=== PATIENT | female | born 1955 | race Caucasian/White ===

== ENCOUNTER 2019-07-06 06:31 | Day surgery (SDC) | payer MEDICARE, BC ==
[~2019-07-06 06:31] MED LIST: Acetaminophen 325 MG Tab PO ONE; Acetaminophen 325 MG Tab PO SCH; Bisacodyl 5 MG Tab PO PRN; Clindamycin Phosphate 900 MG in Sodium Chloride 0.9% 100 ML IV SCH; Cyclobenzaprine 10 MG Tab PO PRN; EPINEPHrine 1 MG/ML SDV ONE; Ketorolac 15 MG/ML SDV IVPUSH PRN; Lactated Ringers 1,000 ML IV SCH; Lidocaine 1%/Sod Bicarbonate in NS 8.4% 1 ML Syringe IDERM PRN; Magnesium Hydroxide 400 MG/5 ML Susp 30 ML Cup PO PRN; Midazolam 1 MG/ML 2 ML SDV ONE; Morphine 2 MG/ML Syringe IVPUSH PRN; Morphine 8 MG, EPINEPHrine 0.3 MG, Cefuroxime 750 MG, Ketorolac 30 MG, Sodium Chloride ... ONE; Naloxone 0.4 MG/ML SDV IVPUSH PRN; Ondansetron 4 MG/2 ML SDV IVPUSH PRN; Pregabalin 25 MG Cap PO SCH; Propofol 200 MG/20 ML SDV ONE; Ropivacaine 0.5% 5 MG/ML 30 ML SDV ONE; Sennosides 8.6 MG Tab PO PRN; Sodium Chloride 0.9% 10 ML Syringe FLUSH PRN; ceFAZolin 1 GM Vial ONE; fentaNYL 100 MCG/2 ML SDV ONE; oxyCODONE ER 10 MG TAB.ER PO SCH
--- NOTE | 2019-07-06 06:35 | PCM.PREANE ---
Preanesthetic Assessment - Procedure Proposed Procedure: left knee arthroplasty - Anesthesia/Transfusion/Family Hx Anesthesia History: Prior Anesthesia Without Reaction Family History of Anesthesia Reaction: No Transfusion History: No Prior Transfusion(s) - Review of Systems General: No Symptoms Pulmonary: No Symptoms Cardiovascular: No Symptoms Gastrointestinal: No Symptoms Neurological: No Symptoms (e) Other: Reports: Thyroid Problems - Physical Assessment NPO Status Date: 07/05/19 NPO Status Time: 22:30 Vital Signs: Last Vital Signs Temp 97.0 F 07/06/19 06:05 Pulse 73 07/06/19 06:05 Resp 16 07/06/19 06:05 BP 161/87 H 07/06/19 06:05 Pulse Ox 94 L 07/06/19 06:05 Height: 5 ft 3 in Weight: 93.44 kg ASA Class: 2 Mental Status: Alert & Oriented x3 Airway Class: Mallampati = 2 Dentition: Reports: Normal Dentition Thyro-Mental Finger Breadths: 3 Mouth Opening Finger Breadths: 3 ROM/Head Extension: Full Lungs: Clear to Auscultation, Normal Respiratory Effort Cardiovascular: Regular Rate, Regular Rhythm - Lab Values: Laboratory Last Values MRSA (PCR) Negative 06/20/19 11:14 - Allergies Allergies/Adverse Reactions: Allergies Allergy/AdvReac Type Severity Reaction Status Date / Time Penicillins Allergy Hives Verified 08/15/16 15:53 - Blood Blood Available: No - Acknowledgements Anesthesia Type Planned: Spinal Pt an Appropriate Candidate for the Planned Anesthesia: Yes Alternatives and Risks of Anesthesia Discussed w Pt/Guardian: Yes Pt/Guardian Understands and Agrees with Anesthesia Plan: Yes PreAnesthesia Questionnaire HEENT History: Reports: Cataract Cardiovascular History: Reports: High Cholesterol, Hypertension Respiratory History: Reports: None Gastrointestinal History: Reports: Colon Polyp, GERD, Hiatal Hernia Genitourinary History: Reports: None [employer] History: Reports: Other (See Below) Other OB/BYN History: breast lumpectomy Musculoskeletal History: Neurological History: Reports: None Psychiatric History: Reports: None Endocrine/Metabolic History: Reports: Hypothyroidism, Obesity/BMI 30+ Hematologic History: Reports: None Oncologic (Cancer) History: Reports: Breast Dermatologic History: Reports: None - Past Surgical History Head Surgeries/Procedures: Reports: None HEENT Surgical History: Reports: Cataract Surgery, Oral Surgery, Tonsillectomy Cardiovascular Surgical History: Reports: None Respiratory Surgical History: Reports: None GI Surgical History: Reports: Appendectomy, Colonoscopy, EGD Female Surgical History: Reports: Breast Biopsy, Hysterectomy Male Surgical History: Reports: None Endocrine Surgical History: Reports: None Neurological Surgical History: Reports: None Musculoskeletal Surgical History: Reports: Knee Replacement, Other (See Below) Other Musculoskeletal Surgeries/Procedures:: BILATERAL BUNIONECTOMY Oncologic Surgical History: Reports: Lumpectomy Dermatological Surgical History: Reports: None - SUBSTANCE USE Smoking Status *Q: Former Smoker (quit 13 years ago) Tobacco Use Within Last Twelve Months: No Second Hand Smoke Exposure: No Days Per Week of Alcohol Use: 2 Number of Drinks Per Day: 3 Total Drinks Per Week: 6 Recreational Drug Use History: No - HOME MEDS Home Medications: Home Meds Aspirin [Children's Aspirin] 81 mg PO DAILY 08/15/16 [History] Furosemide 40 mg PO DAILY 08/15/16 [History] Multivitamin [Daily Jovita] 1 tab PO DAILY 08/15/16 [History] Venlafaxine [Effexor XR] 37.5 mg PO DAILY 08/15/16 [History] amLODIPine [Norvasc] 5 mg PO DAILY 08/15/16 [History] Celecoxib 200 mg PO DAILY PRN 07/05/19 [History] Cholecalciferol (Vitamin D3) [Vitamin D3] 5,000 unit PO DAILY 07/05/19 [History] Levothyroxine [Levothroid] 137 mcg PO MOTUWETHFRSA 07/05/19 [History] Levothyroxine [Levothroid] 205.5 mcg PO OSBORN 07/05/19 [History] Rosuvastatin Calcium 20 mg PO DAILY 07/05/19 [History] - CURRENT (IN HOUSE) MEDS Current Meds: Current Medications Acetaminophen (Tylenol) 325 mg PO ONETIME [facility] Stop: 07/06/19 16:00 Last Admin: 07/06/19 06:25 Dose: 325 mg Lactated Ringer's (Ringers, Lactated) 1,000 mls @ 125 mls/hr IV ASDIRECTED [facility] Stop: 07/06/19 23:00 Clindamycin Phosphate 900 mg/ (Premix) 50 mls @ 50 mls/hr IV Q12H [facility] Lidocaine/Sodium Bicarbonate (Buffered Lidocaine 1% In Ns 8.4%) 0.25 ml IDERM ONETIME PRN PRN Reason: Prior to IV Start Stop: 07/06/19 18:00 Oxycodone HCl (Oxycontin) 10 mg PO ONETIME [facility] Stop: 07/06/19 16:00 Last Admin: 07/06/19 06:25 Dose: 10 mg Pregabalin (Lyrica) 50 mg PO ONETIME [facility] Stop: 07/06/19 16:00 Last Admin: 07/06/19 06:25 Dose: 50 mg Sodium Chloride (Saline Flush) 10 ml FLUSH ASDIRECTED PRN PRN Reason: Keep Vein Open Stop: 07/06/19 18:00 Discontinued Medications Bupivacaine HCl (Sensorcaine-Mpf 0.25%) Confirm Administered Dose 30 ml .ROUTE .STK-MED ONE Stop: 07/06/19 06:28 Cefazolin Sodium (Ancef) Confirm Administered Dose 2 gm .ROUTE .STK-MED ONE Stop: 07/06/19 06:27 Epinephrine HCl (Adrenalin) Confirm Administered Dose 1 mg .ROUTE .STK-MED ONE Stop: 07/06/19 06:19 Fentanyl (Sublimaze) Confirm Administered Dose 100 mcg .ROUTE .STK-MED ONE Stop: 07/06/19 06:14 Clindamycin Phosphate 900 mg/ (Sodium Chloride) 106 mls @ 200 mls/hr IV ONETIME [facility] Iodine (Iodine 2% Mild Tincture) Confirm Administered Dose 30 ml .ROUTE .STK- MED ONE Stop: 07/06/19 06:27 Midazolam HCl (Versed 1 Mg/Ml) Confirm Administered Dose 2 mg .ROUTE .STK-MED ONE Stop: 07/06/19 06:14 Propofol (Diprivan 20 Ml) Confirm Administered Dose 600 mg .ROUTE .STK-MED ONE Stop: 07/06/19 06:14 Ropivacaine (Naropin 0.5%) Confirm Administered Dose 30 ml .ROUTE .STK-MED ONE Stop: 07/06/19 06:19 Tranexamic Acid (Cyklokapron) Confirm Administered Dose 1,000 mg .ROUTE .STK- MED ONE Stop: 07/06/19 06:27 Vancomycin HCl (Vancomycin) Confirm Administered Dose 1 gm .ROUTE .STK-MED ONE Stop: 07/06/19 06:27
[2019-07-06] MEDS ORDERED: ceFAZolin 2 GM in Premix Bag 1 BAG IV SCH (07:00)
[2019-07-06] MEDS: Clindamycin Phosphate in D5W 900 MG in Premix Bag 1 BAG IV SCH ×4 (07:04→17:29)
[2019-07-06] MEDS ORDERED: fentaNYL 100 MCG/2 ML SDV IVPUSH PRN (07:20)
[2019-07-06] MEDS ORDERED: HYDROmorphone 0.5 MG/0.5 ML Syringe IVPUSH PRN (07:20)
[2019-07-06] MEDS ORDERED: Ondansetron 4 MG/2 ML SDV IVPUSH PRN (07:20)
[2019-07-06] MEDS ORDERED: ePHEDrine/Normal Saline 25 MG/5 ML Syringe ONE (07:27)
[2019-07-06] MEDS ORDERED: Ondansetron 4 MG/2 ML SDV ONE (07:49)
[2019-07-06] MEDS: Clindamycin Phosphate 900 MG/6 ML SDV ONE ×2 (07:50→08:19)
[2019-07-06] MEDS: Iodine/Sodium Iodide 2% Tincture 30 ML Bottle ONE ×2 (07:50→08:15)
[2019-07-06] MEDS: Vancomycin 1 GM SDV ONE ×2 (07:51→08:26)
[2019-07-06] MEDS: Morphine 8 MG, EPINEPHrine 0.3 MG, Ketorolac 30 MG, Sodium Chloride 0.9% 27.9 ML ONE ×12 (07:51→11:56)
[2019-07-06] MEDS: Bupivacaine 0.25% 10 ML SDV ONE ×2 (07:51→08:22)
[2019-07-06] MEDS ORDERED: Lactated Ringers 1,000 ML ONE (08:47)
[2019-07-06] MEDS ORDERED: Ketorolac 30 MG/ML SDV ONE (08:56)
--- NOTE | 2019-07-06 09:02 | PCM.POSTAN ---
POST ANESTHESIA ASSESSMENT - MENTAL STATUS Mental Status: Alert, Oriented - VITAL SIGNS Vital Signs: Last Vital Signs Temp 97.0 F 07/06/19 06:05 Pulse 73 07/06/19 06:05 Resp 16 07/06/19 06:05 BP 161/87 H 07/06/19 06:05 Pulse Ox 94 L 07/06/19 06:05 108/58 96% 74 16 98.1 - RESPIRATORY Respiratory Status: Respiratory Rate WNL, Airway Patent, O2 Saturation Stable, Supplemental Oxygen - CARDIOVASCULAR CV Status: Pulse Rate WNL, Blood Pressure Stable - GASTROINTESTINAL GI Status: No Symptoms - PAIN Pain Score: 0 - POST OP HYDRATION Hydration Status: Adequate & Stable
--- NOTE | 2019-07-06 09:29 | PCM.SN ---
- Free Text/Narrative Note: Left selective femoral nerve block at the adductor canal for post-procedure pain control under US guidance requested by Dr. Hemphill. Date:07/06/19 Time Out: 911 Start: 912 End: 918 Chart reviewed. Consent signed. Questions answered. Appropriate monitors applied. Time out performed. Left mid-shaft femur identified with ultrasound, scanning medially of femur, the femoral artery in the adductor canal visualized , and the femoral nerve located laterally to the artery. The skin was prepped lateral to the ultrasound probe with chlorahexadine times two. The 21ga 4 insulated block needle was inserted under direct ultrasound guidance into the adductor canal. 25mL of 0.5% ropivacaine with 1:200,000 epinephrine was injected circumferentially around the nerve with intermittent negative aspiration noted. Patient tolerated the procedure well. Sterile technique noted along with sterile gloves, mask, and sterile probe cover. See picture on progress note and vital signs on nurses notes. Block completed in PACU. Didier Rodriguez CRNA
--- NOTE | 2019-07-06 16:14 | CR ---
Left knee: AP and lateral views left knee were obtained. Comparison: No prior knee exam. Knee prosthesis is seen. Components are aligned. Soft tissue air is noted from the surgical procedure. Underlying bony structures are intact. Impression: 1. Satisfactory postop radiographic appearance of recently placed left knee prosthesis. Diagnostic code #2 This report was dictated in [place] Standard Time
[2019-07-06] MEDS: Acetaminophen/oxyCODONE 325-5 MG Tab PO PRN ×2 (16:34→22:51)
[2019-07-06] MEDS: Docusate Sodium 100 MG Cap PO SCH (22:51)
[2019-07-07] MEDS: Acetaminophen/oxyCODONE 325-5 MG Tab PO PRN (05:57)
[2019-07-07] MEDS: Clindamycin Phosphate in D5W 900 MG in Premix Bag 1 BAG IV SCH ×2 (05:57)
--- NOTE | 2019-07-07 07:49 | PCM48HPAN ---
Post Anesthesia Note - EVALUATION WITHIN 48HRS OF ANESTHETIC Vital Signs in Normal Range: Yes Patient Participated in Evaluation: Yes Respiratory Function Stable: Yes Airway Patent: Yes Cardiovascular Function Stable: Yes Hydration Status Stable: Yes Pain Control Satisfactory: Yes Nausea and Vomiting Control Satisfactory: Yes Mental Status Recovered: Yes Vital Signs: Last Vital Signs Temp 36.6 C 07/07/19 04:00 Pulse 74 07/07/19 04:00 Resp 14 07/07/19 04:00 BP 118/76 07/07/19 04:00 Pulse Ox 95 07/07/19 04:00
[2019-07-07] MEDS: Docusate Sodium 100 MG Cap PO SCH (08:47)
[2019-07-07 08:50] VITALS: BP 142/67; PULSE 78
[2019-07-07] MEDS ORDERED: Venlafaxine 37.5 MG Cap.ER PO SCH (09:00)
[2019-07-07] MEDS ORDERED: Aspirin 325 MG Tab.EC PO SCH (09:00)
[2019-07-07] MEDS ORDERED: amLODIPine 5 MG Tab PO SCH (09:00)
[2019-07-07] MEDS ORDERED: Multivitamins,Therapeutic Tab PO SCH (09:00)
[2019-07-07] MEDS ORDERED: Rosuvastatin 10 MG Tab PO SCH (09:00)
[2019-07-07] MEDS ORDERED: Cholecalciferol (Vitamin D3) 5,000 UNIT Tab PO SCH (09:00)
--- NOTE | 2019-07-07 15:09 | PCM.SURGPN ---
- General Info Date of Service: 07/07/19 POD#: 1 Functional Status: Reports: Pain Controlled, Tolerating Diet, Ambulating, Urinating, Incentive Spirometry, Other (The pt states she is doing well.) - Patient Data Vitals - Most Recent: Last Vital Signs Temp 98.2 F 07/07/19 08:38 Pulse 78 07/07/19 08:38 Resp 24 H 07/07/19 08:38 BP 142/67 H 07/07/19 08:46 Pulse Ox 94 L 07/07/19 08:38 Weight - Most Recent: 206 lb I&O - Last 24 Hours: Intake & Output 07/07/19 07/07/19 07/07/19 06:59 14:59 22:59 Intake Total 180 Balance 180 Lab Results Last 24 Hrs: Laboratory Results - last 24 hr 07/07/19 07/07/19 Range/Units 05:03 05:03 WBC 9.01 (3.98-10.04) K/mm3 RBC 4.03 (3.98-5.22) M/mm3 Hgb 11.3 (11.2-15.7) gm/dl Hct 35.9 (34.1-44.9) % MCV 89.1 (79.4-94.8) fl MCH 28.0 (25.6-32.2) pg MCHC 31.5 L (32.2-35.5) g/dl RDW Std Deviation 48.0 H (36.4-46.3) fL Plt Count 225 (182-369) K/mm3 MPV 10.7 (9.4-12.3) fl Sodium 136 (136-145) mEq/L Potassium 4.0 (3.5-5.1) mEq/L Chloride 100 (98-107) mEq/L Carbon Dioxide 29 (21-32) mEq/L Anion Gap 11.0 (5-15) BUN 18 (7-18) mg/dL Creatinine 0.8 (0.55-1.02) mg/dL Est Cr Clr Drug Dosing 57.99 mL/min Estimated GFR (MDRD) > 60 (>60) mL/min BUN/Creatinine Ratio 22.5 H (14-18) Glucose 114 (80-115) mg/dL Calcium 8.6 (8.5-10.1) mg/dL Total Bilirubin 0.5 (0.2-1.0) mg/dL AST 21 (15-37) U/L ALT 35 (14-59) U/L Alkaline Phosphatase 53 (46-116) U/L Total Protein 7.3 (6.4-8.2) g/dl Albumin 3.5 (3.4-5.0) g/dl Globulin 3.8 gm/dL Albumin/Globulin Ratio 0.9 L (1-2) Med Orders - Current: Current Medications Discontinued Medications Acetaminophen (Tylenol) 325 mg PO ONETIME [facility] Stop: 07/06/19 16:00 Last Admin: 07/06/19 06:25 Dose: 325 mg Acetaminophen (Tylenol) 650 mg PO ONETIME ONE Stop: 07/06/19 06:01 Amlodipine Besylate (Norvasc) 5 mg PO DAILY [facility] Last Admin: 07/07/19 08:46 Dose: 5 mg Aspirin (Ecotrin) 325 mg PO BID [facility] Last Admin: 07/07/19 08:47 Dose: 325 mg Bisacodyl (Dulcolax) 5 mg PO DAILY PRN PRN Reason: Constipation Bupivacaine HCl (Sensorcaine-Mpf 0.25%) Confirm Administered Dose 30 ml .ROUTE .STK-MED ONE Stop: 07/06/19 06:28 Last Admin: 07/06/19 08:22 Dose: 30 ml Cefazolin Sodium (Ancef) Confirm Administered Dose 2 gm .ROUTE .STK-MED ONE Stop: 07/06/19 06:27 Cholecalciferol (Vitamin D3) 5,000 unit PO DAILY [facility] Last Admin: 07/07/19 08:47 Dose: 5,000 unit Clindamycin Phosphate (Cleocin) Confirm Administered Dose 900 mg .ROUTE .STK- MED ONE Stop: 07/06/19 07:01 Last Admin: 07/06/19 08:19 Dose: 900 mg Morphine Sulfate 8 mg/Epinephrine HCl 0.3 mg/Ketorolac Tromethamine 30 mg/ Sodium Chloride 27.9 ml 0 mg .XX ONETIME ONE Stop: 07/06/19 07:31 Last Admin: 07/06/19 11:56 Dose: Not Given Cyclobenzaprine HCl (Flexeril) 10 mg PO TID PRN PRN Reason: Spasms Docusate Sodium (Colace) 100 mg PO BID [facility] Last Admin: 07/07/19 08:47 Dose: 100 mg Ephedrine Sulfate (Ephedrine In Ns) Confirm Administered Dose 25 mg .ROUTE .STK- MED ONE Stop: 07/06/19 07:28 Epinephrine HCl (Adrenalin) Confirm Administered Dose 1 mg .ROUTE .STK-MED ONE Stop: 07/06/19 06:19 Fentanyl (Sublimaze) Confirm Administered Dose 100 mcg .ROUTE .STK-MED ONE Stop: 07/06/19 06:14 Fentanyl (Sublimaze) 50 mcg IVPUSH Q5M PRN PRN Reason: Pain Stop: 07/06/19 18:00 Hydromorphone HCl (Dilaudid) 0.5 mg IVPUSH Q10M PRN PRN Reason: Pain (severe 7-10) Stop: 07/06/19 18:00 Lactated Ringer's (Ringers, Lactated) 1,000 mls @ 125 mls/hr IV ASDIRECTED [facility] Stop: 07/06/19 23:00 Last Admin: 07/06/19 06:35 Dose: 125 mls/hr Clindamycin Phosphate 900 mg/ (Sodium Chloride) 106 mls @ 200 mls/hr IV ONETIME [facility] Clindamycin Phosphate 900 mg/ (Premix) 50 mls @ 50 mls/hr IV Q12H [facility] Stop: 07/07/19 06:59 Last Admin: 07/07/19 05:57 Dose: 50 mls/hr Lactated Ringer's (Ringers, Lactated) Confirm Administered Dose 1,000 mls @ as directed .ROUTE .STK-MED ONE Stop: 07/06/19 08:48 Iodine (Iodine 2% Mild Tincture) Confirm Administered Dose 30 ml .ROUTE .STK- MED ONE Stop: 07/06/19 06:27 Last Admin: 07/06/19 08:15 Dose: 18 ml Ketorolac Tromethamine (Toradol) 15 mg IVPUSH Q6H PRN PRN Reason: Pain Stop: 07/11/19 06:31 Last Admin: 07/07/19 08:57 Dose: 15 mg Ketorolac Tromethamine (Toradol) Confirm Administered Dose 30 mg .ROUTE .STK- MED ONE Stop: 07/06/19 08:57 Levothyroxine Sodium (Levothroid) 137 mcg PO [id number] [facility] Last Admin: 12/12/19 06:03 Dose: 137 mcg Levothyroxine Sodium (Levothroid) 205.5 mcg PO [email or web address]@0700 [facility] Lidocaine/Sodium Bicarbonate (Buffered Lidocaine 1% In Ns 8.4%) 0.25 ml IDERM ONETIME PRN PRN Reason: Prior to IV Start Stop: 07/06/19 18:00 Last Admin: 07/06/19 06:35 Dose: 0.25 ml Magnesium Hydroxide (Milk Of Magnesia) 30 ml PO BID PRN PRN Reason: Constipation Midazolam HCl (Versed 1 Mg/Ml) Confirm Administered Dose 2 mg .ROUTE .STK-MED ONE Stop: 07/06/19 06:14 Morphine Sulfate (Morphine) 2 mg IVPUSH Q2H PRN PRN Reason: Breakthrough Pain Multivitamins (Thera) 1 each PO DAILY [facility] Last Admin: 07/07/19 08:46 Dose: 1 each Naloxone HCl (Narcan) 0.1 mg IVPUSH Q5M PRN PRN Reason: Oversedation Ondansetron HCl (Zofran) 4 mg IVPUSH Q6H PRN PRN Reason: Nausea/Vomiting Ondansetron HCl (Zofran) 4 mg IVPUSH ONETIME PRN PRN Reason: Nausea/Vomiting Stop: 07/06/19 18:00 Ondansetron HCl (Zofran) Confirm Administered Dose 4 mg .ROUTE .STK-MED ONE Stop: 07/06/19 07:50 Oxycodone HCl (Oxycontin) 10 mg PO ONETIME [facility] Stop: 07/06/19 16:00 Last Admin: 07/06/19 06:25 Dose: 10 mg Oxycodone/Acetaminophen (Percocet 325-5 Mg) 1 - 2 tab PO Q4H PRN PRN Reason: Pain Last Admin: 07/07/19 05:57 Dose: 2 tab Pregabalin (Lyrica) 50 mg PO ONETIME [facility] Stop: 07/06/19 16:00 Last Admin: 07/06/19 06:25 Dose: 50 mg Propofol (Diprivan 20 Ml) Confirm Administered Dose 600 mg .ROUTE .STK-MED ONE Stop: 07/06/19 06:14 Ropivacaine (Naropin 0.5%) Confirm Administered Dose 30 ml .ROUTE .STK-MED ONE Stop: 07/06/19 06:19 Rosuvastatin Calcium (Crestor) 20 mg PO DAILY [facility] Last Admin: 07/07/19 08:47 Dose: 20 mg Senna (Senna) 8.6 mg PO BID PRN PRN Reason: Constipation Sodium Chloride (Saline Flush) 10 ml FLUSH ASDIRECTED PRN PRN Reason: Keep Vein Open Stop: 07/06/19 18:00 Tranexamic Acid (Cyklokapron) Confirm Administered Dose 1,000 mg .ROUTE .STK- MED ONE Stop: 07/06/19 06:27 Last Admin: 07/06/19 08:30 Dose: 1,000 mg Vancomycin HCl (Vancomycin) Confirm Administered Dose 1 gm .ROUTE .STK-MED ONE Stop: 07/06/19 06:27 Last Admin: 07/06/19 08:26 Dose: 1 gm Venlafaxine HCl (Effexor Xr) 37.5 mg PO DAILY [facility] Last Admin: 07/07/19 08:46 Dose: 37.5 mg - Exam Wound/Incisions: Dressing Dry and Intact General: Alert, Cooperative, No Acute Distress Lungs: Normal Respiratory Effort Extremities: Other (NVS intact for BLE. Manny's negative for BLE.) Sepsis Event Note - Evaluation Sepsis Screening Result: No Definite Risk - Focused Exam Vital Signs: Vital Signs Temp Temp Pulse Pulse Resp BP BP 07/07/19 08:46 142/67 H 07/07/19 08:38 98.2 F 78 24 H 142/67 H 07/07/19 04:00 97.9 F 74 14 118/76 Pulse Ox 07/07/19 08:46 07/07/19 08:38 94 L 07/07/19 04:00 95 Date Exam was Performed: 07/07/19 Time Exam was Performed: 15:07 - Problem List Review Problem List Initiated/Reviewed/Updated: Yes - My Orders Last 24 Hours: Active Orders 24 hr Category Date Time Status Ready for Discharge [RC] PER UNIT ROUTINE Care 07/07/19 07:02 Active - Assessment Assessment (Free Text/Narrative):: POD#1 - left TKA - Plan Plan (Free Text/Narrative):: 1. Hgb 11.3. 2. 325mg ASA PO BID, frequent mobility, TEDs. 3. Discharge to home today. The pt states she has a friend staying with her. 4. Outpatient therapy. The pt's case was discussed with Dr. Hemphill.
--- NOTE | 2019-07-07 15:10 | PCM.DCSUM1 ---
Discharge Summary - Hospital Course Brief History: Rachelle is a 63 yo female who underwent left TKA with Dr. Hemphill on 07-06-2019. The procedure was completed under spinal anesthesia with sedation and a post-operative adductor canal block was provided. The pt tolerated the procedure well and was admitted to the Medical-Surgical Unit. The pt's Hospital course was uneventful. The pt's Hgb on POD#1 was 11.3. On POD#1, 325mg ASA BID was initiated for VTE prophylaxis. SCDs and TEDs were also ordered. A Mepilex dressing was placed at the incision site at the time of surgery and remained clean and dry. The pt participated in P.T. and O.T. and progressed well. The pt was allowed to WBAT. On POD#1, the pt was deemed appropriate to discharge to home with her friend. - Discharge Data Discharge Date: 07/07/19 Discharge Disposition: Home, Self-Care 01 Condition: Good - Referral to Home Health Primary Care Physician: Sumeet Pino PT - Patient Summary/Data Consults: Consultations 07/06/19 06:30 OT Evaluation and Treatment [CONS] Routine PT Evaluation and Treatment [CONS] Routine - Patient Instructions Diet: Usual Diet as Tolerated Activity: Apply Ice, As Tolerated, Elevate Extremity, Full Weight Bearing Driving: Do Not Drive Showering/Bathing: May Shower Wound/Incision Care: Keep Operative Site/Wound Site Clean and Dry, Do NOT Change Dressing Notify Provider of: Fever, Increased Pain, Swelling and Redness, Drainage, Nausea and/or Vomiting Other/Special Instructions: Please get up and moving around EVERY HOUR while awake. This helps to prevent blood clots. Please use your walker and have help with mobility as needed. Take a short walk in your home every hour while awake. Please take 325mg Aspirin TWICE daily. The aspirin is being used for blood clot prevention and not for pain management so please do not miss a dose of the medication. You could use a medication like Pepcid or Tagamet and a medication like Prilosec or Nexium to protect your stomach while you are using the aspirin. At home, please complete the exercises that you learned during the Hospital stay. Schedule for physical therapy. Use the pain medication as needed. The medication may cause drowsiness and constipation. Contact your primary care provider for instructions if you are constipated. You may use a stool softener like docusate sodium or Colace 100mg twice daily and/or a laxative like Miralax daily for constipation. Increase your water and fiber intake while you are using the pain medication. Discontinue use of the pain medication as soon as able. Please do not use other medications that may cause drowsiness (other pain medications, anxiety pills, cold medications, sleeping pills, etc) while using the prescription pain medication. Do not use alcohol while using the pain medication. You may use acetaminophen or Tylenol for pain management, however, please ensure you are not using over 4000 mg or 4 grams of acetaminophen per day from all sources. Your pain medication has 325mg of acetaminophen per tablet. At this time, please do not use ibuprofen (Motrin, Advil) or naproxen (Aleve) for pain management as you are using the aspirin. When the aspirin course is completed in 4 to 6 weeks, you could use ibuprofen or naproxen for pain management (if this is allowed by your primary care provider). Wear the HAM hose during the day and you may remove these at night. Elevate the limb to decrease swelling. Place ice to the area often. Place a towel between your skin and the blue pad. Use the incentive spirometer often. Take deep breaths throughout the day. Please keep the dressing in place until follow-up. Notify the Clinic if the dressing becomes saturated. Increase your protein intake while you are healing. If you have diabetes, please closely monitor your blood sugars and notify your primary care provider with abnormal values. Elevated blood sugars increases the risk of infection. Call the Clinic with questions or concerns - [phone]. - Discharge Plan *PRESCRIPTION DRUG MONITORING PROGRAM REVIEWED*: No *COPY OF PRESCRIPTION DRUG MONITORING REPORT IN PATIENT ALETA: No Prescriptions/Med Rec: Acetaminophen/oxyCODONE [Percocet 325-5 MG] 1 - 2 tab PO Q4H PRN #60 tablet PRN Reason: Pain Aspirin [Ecotrin EC] 325 mg PO BID #84 tab.ec Cyclobenzaprine [Flexeril] 5 mg PO BID PRN #20 tablet PRN Reason: Spasms Home Medications: Home Meds Furosemide 40 mg PO DAILY 08/15/16 [History] Multivitamin [Daily Jovita] 1 tab PO DAILY 08/15/16 [History] Venlafaxine [Effexor XR] 37.5 mg PO DAILY 08/15/16 [History] amLODIPine [Norvasc] 5 mg PO DAILY 08/15/16 [History] Cholecalciferol (Vitamin D3) [Vitamin D3] 5,000 unit PO DAILY 07/05/19 [History] Levothyroxine [Levothroid] 137 mcg PO MOTUWETHFRSA 07/05/19 [History] Levothyroxine [Levothroid] 205.5 mcg PO OSBORN 07/05/19 [History] Rosuvastatin Calcium 20 mg PO DAILY 07/05/19 [History] Acetaminophen/oxyCODONE [Percocet 325-5 MG] 1 - 2 tab PO Q4H PRN #60 tablet 07/14 [Rx] Aspirin [Ecotrin EC] 325 mg PO BID #84 tab.ec 07/07/19 [Rx] Bisacodyl [Dulcolax] 5 mg PO DAILY PRN #0 tablet 07/07/19 [Rx] Cyclobenzaprine [Flexeril] 5 mg PO BID PRN #20 tablet 07/07/19 [Rx] Docusate Sodium [Colace] 100 mg PO BID cap 07/07/19 [Rx] Sennosides [Senna] 8.6 mg PO BID PRN tablet 07/07/19 [Rx] Referrals: Rossi Nagy, PAAlidaC [Physician Manager [employer]] - (Please follow up with Rossi Nagy on: 1) ThursdayJuly 13 at 12:30 pm. 2) ThursdayJuly 18 at 9:45 am. 3) Thursday 12:00 pm) Leeanna Weems MD [Physician] - 07/21/19 3:00 pm (Please follow up with Dr. Farah on July 21 at 3:00pm) - Discharge Summary/Plan Comment DC Time >30 min.: No - Patient Data Vitals - Most Recent: Last Vital Signs Temp 98.2 F 07/07/19 08:38 Pulse 78 07/07/19 08:38 Resp 24 H 07/07/19 08:38 BP 142/67 H 07/07/19 08:46 Pulse Ox 94 L 07/07/19 08:38 Weight - Most Recent: 206 lb I&O - Last 24 hours: Intake & Output 07/07/19 07/07/19 07/07/19 06:59 14:59 22:59 Intake Total 180 Balance 180 Lab Results - Last 24 hrs: Laboratory Results - last 24 hr 07/07/19 07/07/19 Range/Units 05:03 05:03 WBC 9.01 (3.98-10.04) K/mm3 RBC 4.03 (3.98-5.22) M/mm3 Hgb 11.3 (11.2-15.7) gm/dl Hct 35.9 (34.1-44.9) % MCV 89.1 (79.4-94.8) fl MCH 28.0 (25.6-32.2) pg MCHC 31.5 L (32.2-35.5) g/dl RDW Std Deviation 48.0 H (36.4-46.3) fL Plt Count 225 (182-369) K/mm3 MPV 10.7 (9.4-12.3) fl Sodium 136 (136-145) mEq/L Potassium 4.0 (3.5-5.1) mEq/L Chloride 100 (98-107) mEq/L Carbon Dioxide 29 (21-32) mEq/L Anion Gap 11.0 (5-15) BUN 18 (7-18) mg/dL Creatinine 0.8 (0.55-1.02) mg/dL Est Cr Clr Drug Dosing 57.99 mL/min Estimated GFR (MDRD) > 60 (>60) mL/min BUN/Creatinine Ratio 22.5 H (14-18) Glucose 114 (80-115) mg/dL Calcium 8.6 (8.5-10.1) mg/dL Total Bilirubin 0.5 (0.2-1.0) mg/dL AST 21 (15-37) U/L ALT 35 (14-59) U/L Alkaline Phosphatase 53 (46-116) U/L Total Protein 7.3 (6.4-8.2) g/dl Albumin 3.5 (3.4-5.0) g/dl Globulin 3.8 gm/dL Albumin/Globulin Ratio 0.9 L (1-2) Med Orders - Current: Current Medications Discontinued Medications Acetaminophen (Tylenol) 325 mg PO ONETIME KYLIE Stop: 07/06/19 16:00 Last Admin: 07/06/19 06:25 Dose: 325 mg Acetaminophen (Tylenol) 650 mg PO ONETIME ONE Stop: 07/06/19 06:01 Amlodipine Besylate (Norvasc) 5 mg PO DAILY [facility] Last Admin: 07/07/19 08:46 Dose: 5 mg Aspirin (Ecotrin) 325 mg PO BID [facility] Last Admin: 07/07/19 08:47 Dose: 325 mg Bisacodyl (Dulcolax) 5 mg PO DAILY PRN PRN Reason: Constipation Bupivacaine HCl (Sensorcaine-Mpf 0.25%) Confirm Administered Dose 30 ml .ROUTE .STK-MED ONE Stop: 07/06/19 06:28 Last Admin: 07/06/19 08:22 Dose: 30 ml Cefazolin Sodium (Ancef) Confirm Administered Dose 2 gm .ROUTE .STK-MED ONE Stop: 07/06/19 06:27 Cholecalciferol (Vitamin D3) 5,000 unit PO DAILY [facility] Last Admin: 07/07/19 08:47 Dose: 5,000 unit Clindamycin Phosphate (Cleocin) Confirm Administered Dose 900 mg .ROUTE .STK- MED ONE Stop: 07/06/19 07:01 Last Admin: 07/06/19 08:19 Dose: 900 mg Morphine Sulfate 8 mg/Epinephrine HCl 0.3 mg/Ketorolac Tromethamine 30 mg/ Sodium Chloride 27.9 ml 0 mg .XX ONETIME ONE Stop: 07/06/19 07:31 Last Admin: 07/06/19 11:56 Dose: Not Given Cyclobenzaprine HCl (Flexeril) 10 mg PO TID PRN PRN Reason: Spasms Docusate Sodium (Colace) 100 mg PO BID [facility] Last Admin: 07/07/19 08:47 Dose: 100 mg Ephedrine Sulfate (Ephedrine In Ns) Confirm Administered Dose 25 mg .ROUTE .STK- MED ONE Stop: 07/06/19 07:28 Epinephrine HCl (Adrenalin) Confirm Administered Dose 1 mg .ROUTE .STK-MED ONE Stop: 07/06/19 06:19 Fentanyl (Sublimaze) Confirm Administered Dose 100 mcg .ROUTE .STK-MED ONE Stop: 07/06/19 06:14 Fentanyl (Sublimaze) 50 mcg IVPUSH Q5M PRN PRN Reason: Pain Stop: 07/06/19 18:00 Hydromorphone HCl (Dilaudid) 0.5 mg IVPUSH Q10M PRN PRN Reason: Pain (severe 7-10) Stop: 07/06/19 18:00 Lactated Ringer's (Ringers, Lactated) 1,000 mls @ 125 mls/hr IV ASDIRECTED [facility] Stop: 07/06/19 23:00 Last Admin: 07/06/19 06:35 Dose: 125 mls/hr Clindamycin Phosphate 900 mg/ (Sodium Chloride) 106 mls @ 200 mls/hr IV ONETIME [facility] Clindamycin Phosphate 900 mg/ (Premix) 50 mls @ 50 mls/hr IV Q12H [facility] Stop: 07/07/19 06:59 Last Admin: 07/07/19 05:57 Dose: 50 mls/hr Lactated Ringer's (Ringers, Lactated) Confirm Administered Dose 1,000 mls @ as directed .ROUTE .STK-MED ONE Stop: 07/06/19 08:48 Iodine (Iodine 2% Mild Tincture) Confirm Administered Dose 30 ml .ROUTE .STK- MED ONE Stop: 07/06/19 06:27 Last Admin: 07/06/19 08:15 Dose: 18 ml Ketorolac Tromethamine (Toradol) 15 mg IVPUSH Q6H PRN PRN Reason: Pain Stop: 07/11/19 06:31 Last Admin: 07/07/19 08:57 Dose: 15 mg Ketorolac Tromethamine (Toradol) Confirm Administered Dose 30 mg .ROUTE .STK- MED ONE Stop: 07/06/19 08:57 Levothyroxine Sodium (Levothroid) 137 mcg PO MoTuWeThFrSa@0700 [facility] Last Admin: 07/07/19 06:03 Dose: 137 mcg Levothyroxine Sodium (Levothroid) 205.5 mcg PO Osborn@0700 [facility] Lidocaine/Sodium Bicarbonate (Buffered Lidocaine 1% In Ns 8.4%) 0.25 ml IDERM ONETIME PRN PRN Reason: Prior to IV Start Stop: 07/06/19 18:00 Last Admin: 07/06/19 06:35 Dose: 0.25 ml Magnesium Hydroxide (Milk Of Magnesia) 30 ml PO BID PRN PRN Reason: Constipation Midazolam HCl (Versed 1 Mg/Ml) Confirm Administered Dose 2 mg .ROUTE .STK-MED ONE Stop: 07/06/19 06:14 Morphine Sulfate (Morphine) 2 mg IVPUSH Q2H PRN PRN Reason: Breakthrough Pain Multivitamins (Thera) 1 each PO DAILY [facility] Last Admin: 07/07/19 08:46 Dose: 1 each Naloxone HCl (Narcan) 0.1 mg IVPUSH Q5M PRN PRN Reason: Oversedation Ondansetron HCl (Zofran) 4 mg IVPUSH Q6H PRN PRN Reason: Nausea/Vomiting Ondansetron HCl (Zofran) 4 mg IVPUSH ONETIME PRN PRN Reason: Nausea/Vomiting Stop: 07/06/19 18:00 Ondansetron HCl (Zofran) Confirm Administered Dose 4 mg .ROUTE .STK-MED ONE Stop: 07/06/19 07:50 Oxycodone HCl (Oxycontin) 10 mg PO ONETIME [facility] Stop: 07/06/19 16:00 Last Admin: 07/06/19 06:25 Dose: 10 mg Oxycodone/Acetaminophen (Percocet 325-5 Mg) 1 - 2 tab PO Q4H PRN PRN Reason: Pain Last Admin: 07/07/19 05:57 Dose: 2 tab Pregabalin (Lyrica) 50 mg PO ONETIME [facility] Stop: 07/06/19 16:00 Last Admin: 07/06/19 06:25 Dose: 50 mg Propofol (Diprivan 20 Ml) Confirm Administered Dose 600 mg .ROUTE .STK-MED ONE Stop: 07/06/19 06:14 Ropivacaine (Naropin 0.5%) Confirm Administered Dose 30 ml .ROUTE .STK-MED ONE Stop: 07/06/19 06:19 Rosuvastatin Calcium (Crestor) 20 mg PO DAILY [facility] Last Admin: 07/07/19 08:47 Dose: 20 mg Senna (Senna) 8.6 mg PO BID PRN PRN Reason: Constipation Sodium Chloride (Saline Flush) 10 ml FLUSH ASDIRECTED PRN PRN Reason: Keep Vein Open Stop: 07/06/19 18:00 Tranexamic Acid (Cyklokapron) Confirm Administered Dose 1,000 mg .ROUTE .STK- MED ONE Stop: 07/06/19 06:27 Last Admin: 07/06/19 08:30 Dose: 1,000 mg Vancomycin HCl (Vancomycin) Confirm Administered Dose 1 gm .ROUTE .STK-MED ONE Stop: 07/06/19 06:27 Last Admin: 07/06/19 08:26 Dose: 1 gm Venlafaxine HCl (Effexor Xr) 37.5 mg PO DAILY KYLIE Last Admin: 07/07/19 08:46 Dose: 37.5 mg
--- NOTE | 2019-07-12 16:22 | PCM.OPNOTE ---
- General Post-Op/Procedure Note Date of Surgery/Procedure: 07/06/19 Operative Procedure(s): left total knee arthroplasty Pre Op Diagnosis: left knee osteoarthrosis Post-Op Diagnosis: Same Anesthesia Technique: Local, MAC, Spinal Primary Surgeon: Jonathan Hemphill Anesthesia Provider: Didier Rodriguez Batch Freezer Operator: Rossi Nagy Batch Freezer Operator: Caridad Rosenbaum in mLs: 5 Complications: None Condition: Good Free Text/Narrative:: / 9mm 29x9
--- NOTE | 2019-07-12 16:54 | OR ---
DATE OF OPERATION: 07/06/2019 SURGEON: Jonathan Hemphill MD OPERATION PERFORMED: Left total knee arthroplasty. PREOPERATIVE DIAGNOSIS: Left knee osteoarthrosis. POSTOPERATIVE DIAGNOSIS: Left knee osteoarthrosis. ANESTHESIA: Local MAC with spinal. ANESTHESIA PROVIDER: Didier Rodriguez CRNA. ASSISTANTS: Rossi Nagy PA-C; and Caridad Rosenbaum LPN. ESTIMATED BLOOD LOSS: 5 mL. COMPLICATIONS: None. CONDITION: Stable. IMPLANTS: 1. [place] size 3 cemented PS femur. 2. Maximilian size 3 cemented [place] tibial baseplate. 3. Maximilian size 3, 9 mm PS extra polyethylene insert. 4. [place] size 3, 29 x 9 mm cemented asymmetric patella. DESCRIPTION OF PROCEDURE: The patient was identified in the preop holding area. Proper site was marked and identified by the surgeon. The patient was taken back to the operating theater. After adequate anesthesia, the patient's left lower extremity had a nonsterile tourniquet applied and it was sterilely prepped and draped in the usual sterile fashion. OR time-out was performed. The patient received 2 g IV Ancef. At this time, the left lower extremity was exsanguinated. Tourniquet was insufflated to 300 mmHg. Standard medial parapatellar incision was made. Medial parapatellar arthrotomy was created. Deep fibers of the MCL were raised and anterior fat pad was resected. At this time, attention was turned to the patella. Patella measured a 21 and resected to 13 for a 29 x 9 mm patella. Drill holes were then drilled and found to be in adequate position. The drill was then drilled in the distal femur and the intramedullary distal femoral cutting guide was then placed. 8 mm was resected off the distal femur and was found to be an adequate resection. Sizing guide was placed. It was found to be a size 3 cemented PS femur that was shown on the implant record at the beginning of this dictation. The drill holes were drilled for the epicondylar axis using [place] line and epicondyles as reference. At this time, the 4-in-1 cutting block was placed. An anterior posterior and anterior and posterior chamfer cuts were then completed. Box cut was completed at this time. Attention was turned to the tibia. The posterior medial lateral retractors were placed. The extramedullary tibial guide was placed. It was placed in the old footprint of the ACL. It was aligned with the center of the ankle and 0 degrees of slope, 9 mm was then resected off the unaffected side. There was found to be an acceptable reduction. At this time, posterior osteophytes were removed along with medial and lateral meniscus. A trial implant was placed with a correct sized tibia that was mentioned at the beginning of the dictation. A Maximilian size 3, 9 mm PS extra polyethylene insert was then placed. The patient's knee was brought through range of motion. The patella was tracking centrally and was stable to varus and valgus stress. Alignment was found to be roughly at 0 degrees. The tibia was stamped and drilled in proper rotation. The universal tibial base plate was impacted in place. Next, the [place] size 3 cemented PS femur impacted into place and the Maximilian size 3, 9 mm PS extra polyethylene insert was placed. The patient's knee was brought into full extension. Excess cement was removed. The patella was then cemented in place at this time. One liter dilute Betadine solution was irrigated through the knee along with 3 L of pulse lavage irrigation with Ancef. Periarticular injection was then completed. The patient's knee was brought through a range of motion. Once the cement had time to set up and it was found to be stable to varus valgus stress, the patella was tracking centrally with full range of motion. At this time, a #2 barbed suture was used for closure of the medial parapatellar arthrotomy. Topical tranexamic acid was placed. 2-0 Vicryl was used subcutaneously, Prineo was used for the skin. The patient tolerated the procedure well and was sent to the PACU in stable condition. MMODAL /[id number] FLORIN
== END 2019-07-07 11:06 | disposition home or self-care (01) ==
LOC: JD.SDS 06:31 → JD.MS 06:31 → EDSTATUS 08:00 → JD.MS 07-07 11:06
PROVIDERS: ATTEND Orthopaedic Surgery
DX: M17.12 Unilateral primary osteoarthritis, left knee (principal); I10 Essential (primary) hypertension; E78.00 Pure hypercholesterolemia, unspecified; E03.9 Hypothyroidism, unspecified; K21.9 Gastro-esophageal reflux disease without esophagitis; E66.9 Obesity, unspecified; Z88.0 Allergy status to penicillin; Z68.37 Body mass index [BMI] 37.0-37.9, adult; Z79.899 Other long term (current) drug therapy; Z79.1 Long term (current) use of non-steroidal anti-inflammatories (NSAID); Z87.891 Personal history of nicotine dependence
CPT/HCPCS: 27447; 36415; 73560; 80053; 85027; 87641; 97110; 97116; 97161; 97165; 97535; A9270; C1713; C1776; J0171; J1885; J2250; J2270; J2405; J2704; J2795; J3010; J3370; J3490; J7050; J7120; 01402; 64450; J0690